=== PATIENT | female | born 1965 ===

== ENCOUNTER 2021-07-06 14:00 | Inpatient (IN) | payer OTHER ==
[~2021-07-06] VITALS: Ht 180.3 cm; Wt 111.1 kg
[2021-07-06] MEDS ORDERED: SYNJARDY 12.5-1 EACH PO (16:15)
[2021-07-06] MEDS ORDERED: LEVOTHYROXINE25 MCG PO (16:16)
[2021-07-06] MEDS ORDERED: LOSARTAN POTAS100 MG PO (16:16)
[2021-07-06] MEDS ORDERED: SYNTHROID200 MCG PO (16:17)
[2021-07-07] MEDS ORDERED: TRULICITY1.5 MG/0.5 (16:12)
== END 2021-07-09 10:15 | disposition home or self-care (01) | DRG 735 ==
LOC: O/R 07-07 09:11 → OB/GYN 07-07 14:00
PROVIDERS: ADMIT Specialist; ATTEND Specialist
PROC: 07TD4ZZ Resection of Aortic Lymphatic, Percutaneous Endoscopic Approach (ICD-10-PCS; 2021-07-07)
PROC: 0UT94ZZ Resection of Uterus, Percutaneous Endoscopic Approach (ICD-10-PCS; 2021-07-07)
PROC: 0UT74ZZ Resection of Bilateral Fallopian Tubes, Percutaneous Endoscopic Approach (ICD-10-PCS; 2021-07-07)
PROC: 0UT24ZZ Resection of Bilateral Ovaries, Percutaneous Endoscopic Approach (ICD-10-PCS; 2021-07-07)
PROC: 0DNW4ZZ Release Peritoneum, Percutaneous Endoscopic Approach (ICD-10-PCS; 2021-07-07)
PROC: 3E1M38Z Irrigation of Peritoneal Cavity using Irrigating Substance, Percutaneous Approach (ICD-10-PCS; 2021-07-07)
PROC: 07TC4ZZ Resection of Pelvis Lymphatic, Percutaneous Endoscopic Approach (ICD-10-PCS; principal; 2021-07-07 14:45)
DX: C54.1 Malignant neoplasm of endometrium (principal); N84.0 Polyp of corpus uteri; N80.0 Endometriosis of uterus; D25.1 Intramural leiomyoma of uterus; D25.2 Subserosal leiomyoma of uterus; N83.291 Other ovarian cyst, right side; N83.292 Other ovarian cyst, left side; Z20.822 Contact with and (suspected) exposure to COVID-19